=== PATIENT | male | born 1945 | race Caucasian/White ===

== ENCOUNTER → 2022-07-30 09:56 | Outpatient (BNVA) | payer MEDICARE, OTHER, SELFPAY | PROVIDERS: PCP Family Medicine; Referring Provider Family Medicine; Visit Provider Specialist | DX: G25.0 Essential tremor (principal); F17.210 Nicotine dependence, cigarettes, uncomplicated; R00.1 Bradycardia, unspecified; Z72.3 Lack of physical exercise | CPT/HCPCS: 99204 ==